=== PATIENT | male | born 1960 | race Hispanic/Latino ===

== ENCOUNTER 2018-04-26 14:28 | Inpatient (IN) | payer MEDICARE ==
[2018-04-26 15:14] LABS: #Eosinphils 0.2 thou/uL (0.0-0.7); #Lymphocytes 2.8 thou/uL (1.20-3.40); #Monocytes 0.7 thou/uL (0.11-0.59); #Neutrophils 2.9 thou/uL (1.40-6.50); %Basophils 0.1 % (0.0-1.0); %Eosinophils 3.6 % (0.0-10.0); %Lymphocytes 42.7 % (21.0-51.0); %Monocytes 10.3 % (0.0-10.0); %Neutrophils 43.3 % (42.0-75.0); Hemoglobin 14.5 g/dL (14.0-18.0); Mean Corpuscular HGB CONC 34.8 g/dL (32.0-36.0); Mean Corpuscular Hemoglobin 32.8 pg (27.0-31.0); Mean Corpuscular Volume 94.4 fl (80.0-94.0); Platelet Count 216 thou/uL (130-400); RBC Distribution Width 11.7 % (11.5-14.5); Red Blood Cell (RBC) Count 4.42 mill/uL (4.70-6.10); White Blood Cell (WBC) Count 6.7 thou/uL (4.8-10.8)
[2018-04-26 15:35] LABS: ALT (SGPT) 25 U/L (8-55); AST (SGOT) 47 U/L (5-34); Albumin 3.8 g/dL (3.5-5.0); Alkaline Phosphatase 74 U/L (40-150); Anion Gap 13 mmol/L (10-20); BUN (Urea Nitrogen) 19 mg/dL (8.4-25.7); Bilirubin, Total 0.5 mg/dL (0.2-1.2); Calc. Creatinine Clearance 0 mL/min (70-130); Calcium 9.4 mg/dL (7.8-10.44); Carbon Dioxide 24 mmol/L (22-29); Chloride 104 mmol/L (98-107); Estimated GFR-MDRD 72; Globulin 4.5 g/dL (2.4-3.5); Glucose 127 mg/dL (70-105); Potassium 4.2 mmol/L (3.5-5.1); Protein, Total 8.3 g/dL (6.0-8.3); Sodium 137 mmol/L (136-145)
[2018-04-26] MEDS ORDERED: Ketorolac Tromethamine 30 MG/ML VIAL ONE (17:10)
[2018-04-26] MEDS ORDERED: Metoclopramide HCl 10 MG/2 ML VIAL ONE (17:10)
[2018-04-26] MEDS ORDERED: Dexamethasone 10 MG/ML VIAL ONE (17:13)
[2018-04-26] MEDS ORDERED: hydrALAZINE 20 MG/ML VIAL ONE (18:31)
--- NOTE | 2018-04-26 18:50 | CT ---
NONCONTRAST HEAD CT 04/26/18 HISTORY: Headache. Occipital head x2 weeks. COMPARISON: 11/30/16. FINDINGS: No parenchymal hemorrhage. No extra-axial hematoma. No midline shift. Basilar cisterns are patent. Ag e appropriate brain volume. Cortical hair-white matter differentiation is preserved. Ventricles and s ulci are patent and symmetric. Calvarium is intact. Adequate aeration of the sinuses and mastoid air cells. The left and right cerebellar tonsils are noted at level of the foramen magnum. IMPRESSION: 1. No acute intracranial process. 2. The left and right cerebellar tonsils are noted at the level of the foramen magnum. Correlati on made with a cervical spine MRI from May 01, 2015 suggest that at least the possibility of cerebel lar tonsillar ectopia. Nonemergency neurosurgical consultation is recommended. POS: [facility]
[2018-04-26] MEDS ORDERED: cloNIDine 0.1 MG TAB ONE (18:57)
--- NOTE | 2018-04-26 20:10 | RAD ---
ONE VIEW CHEST: 04/26/18 COMPARISON: 11/30/16. HISTORY: Migraine headache. COMPARISON: None. FINDINGS: Slight elongation of the aorta. Normal cardiac silhouette. Persistent elevation of the right hemidiap hragm. No consolidation of mass. No pneumothorax or osseous abnormalities. IMPRESSION: No acute cardiopulmonary process. POS: [facility]
[2018-04-26 20:12] LABS: Troponin I Less than 0.010 ng/mL (< 0.028)
[2018-04-26] MEDS ORDERED: niCARdipine 20MG In NaCl 20 MG/200 ML BAG ONE ×2 (20:22→23:14)
[2018-04-26 21:18] LABS: Bilirubin Negative (Negative); Blood, Urine Negative (Negative); Clarity CLEAR (Clear); Glucose, Urine (Dipstick) Negative (Negative); Leukocyte Negative (Negative); Nitrite Negative (Negative); Protein, Urine (Dipstick) Negative (Neg-Trace); Specific Gravity, Urine 1.015 (1.002-1.036); pH, Urine 5.5 (5.0-9.0)
[2018-04-26] MEDS ORDERED: Milk Of Magnesia 30 ML UDCUP PO PRN (22:04)
[2018-04-26] MEDS ORDERED: Nitroglycerin 0.4 MG TAB (25 Tab Bottle) PO PRN (22:04)
[2018-04-26] MEDS ORDERED: Acetaminophen 325 MG TAB PO PRN (22:04)
[2018-04-26] MEDS ORDERED: Ondansetron HCl/PF 4 MG/2 ML Vial IVP PRN (22:04)
[2018-04-26] MEDS ORDERED: hydrALAZINE 20 MG/ML VIAL SLOW IVP PRN ×2 (22:04→22:09)
[2018-04-26] MEDS ORDERED: Ondansetron ODT 4 MG TAB PO PRN (22:04)
[2018-04-26] MEDS ORDERED: Nitroglycerin 2% Ointment 1 INCH/1 GM Packet TOP PRN (22:09)
[2018-04-26] MEDS ORDERED: Labetalol HCl 100 MG/20 ML VIAL SLOW IVP PRN (22:09)
[2018-04-26] MEDS ORDERED: Carvedilol 6.25 MG TAB PO SCH (22:15)
[2018-04-26] MEDS ORDERED: tiZANidine HCl 4 MG TAB PO SCH (22:15)
[2018-04-26] MEDS ORDERED: Gabapentin 300 MG CAP PO SCH (22:15)
[2018-04-26] MEDS ORDERED: Aspirin 325 MG TAB PO SCH (22:30)
[2018-04-26] MEDS ORDERED: NIFEdipine XL 30 MG TAB PO SCH (22:30)
--- NOTE | 2018-04-26 22:36 | HP ---
DATE OF ADMISSION: 04/26/2018 PRIMARY CARE PHYSICIAN: Alfredo Chen M.D. CHIEF COMPLAINT: Nausea with headache of 2 weeks' duration. HISTORY OF PRESENT ILLNESS: The patient is a 57-year-old male with morbid obesity and hypertension w ho presented to the emergency room with above complaints. Over the last two weeks, patient has persistent nausea along with headache. The nausea is more or le ss constant without any vomiting, abdominal pain, diarrhea, or constipation. He denies any heartburn or dyspepsia. The headache is more or less in the occipital region without any photophobia, phonophobia, weakness, numbness of any of his extremities. It is more or less constant, moderate in intensity. He denies a ny chest pain, palpitations, syncope, diaphoresis. He is compliant with all of his medications inclu ding aspirin. In the emergency room, his workup was consistent with hypertensive crisis requiring Cardene drip. Hi s blood pressure did not improve despite giving him hydralazine, clonidine. His headache somewhat im proved after Toradol, Decadron, and Reglan. PAST MEDICAL HISTORY: 1. Hypertension. 2. Morbid obesity. 3. Chronic diastolic heart failure. 4. History of TIA in 11/2016. He was started on Plavix at that time. He is unclear who discontinue d Plavix. He does not take Plavix anymore. 5. Chronic pain syndrome. 6. Suspected obstructive sleep apnea. He is not on CPAP. 7. Negative Cardiolite stress test in 11/2016. PAST SURGICAL HISTORY: 1. Cholecystectomy. 2. Incision and drainage of abdominal abscess. ALLERGIES: No known drug allergies. CURRENT HOME MEDICATIONS: Per patient report, carvedilol 6.25 b.i.d., lisinopril/hydrochlorothiazide 20/25 two tablets daily, [place] 10/325 two tablets 3 times daily as needed, Zanaflex 8 mg at bedtime, gabapentin 600 mg t.i.d., aspirin daily. Please note that patient does not take Plavix which was st arted last year. He does not remember when it was discontinued. SOCIAL HISTORY: The patient currently lives at home with his family. He denies any alcohol, tobacco or drug use. He does not have a blood pressure monitor. FAMILY HISTORY: Multiple family members with hypertension, diabetes, and heart problems. REVIEW OF SYSTEMS: The following complete review of systems was negative, unless otherwise mentioned in the HPI or below: Constitutional: Weight loss or gain, ability to conduct usual activities. Sk in: Rash, itching. Eyes: Double vision, pain. ENT/Mouth: Nose bleeding, neck stiffness, pain, ten derness. Cardiovascular: Palpitations, dyspnea on exertion, orthopnea. Respiratory: Shortness of breath, wheezing, cough, hemoptysis, fever or night sweats. Gastrointestinal: Poor appetite, abdomi nal pain, heartburn, nausea, vomiting, constipation, or diarrhea. Genitourinary: Urgency, frequency , dysuria, nocturia. Musculoskeletal: Pain, swelling. Neurologic/Psychiatric: Anxiety, depression . Allergy/Immunologic: Skin rash, bleeding tendency. PHYSICAL EXAMINATION: VITAL SIGNS: Showed blood pressure of 215/96 on Cardene drip at 5, which has been increased to 7.5, pulse rate of 69, respirations 16, O2 saturation 96% on room air. GENERAL: A 57-year-old male with headache and nausea. His headache is somewhat better after above m easures. HEENT: Head: Atraumatic, normocephalic. Sclerae are anicteric. Moist mucous membrane, no oral les ion. NECK: Supple, no JVD, no carotid bruit. LUNGS: Clear to auscultation bilaterally, no wheezing, rales or rhonchi. HEART: S1, S2 present. Regular rate and rhythm, no significant rubs or gallops appreciated. ABDOMEN: Soft, nontender, bowel sounds present. EXTREMITIES: No edema or calf tenderness. NEUROLOGIC: Grossly nonfocal, moves all four extremities. Cranial nerves II-XII were normal on exam ination. Power was 5/5 in all extremities. PSYCHIATRY: Alert, awake, oriented x3. SKIN: Warm and dry. LYMPH NODES: No palpable lymph nodes in the neck. PERIPHERAL VASCULAR: Radial pulses palpable bilaterally. MUSCULOSKELETAL: No joint swelling or tenderness. LABORATORY AND X-RAY FINDINGS: CBC showed WBC 6.7 with hemoglobin 14.5, hematocrit 41.7, platelet co unt 216. Chemistries showed sodium 137, potassium 4.2, chloride 104, bicarbonate 24, BUN 19, creatin ine 1.07. Troponins were negative. Prolactin was negative. Urinalysis was negative. Chest x-ray b y my review was negative for infiltrate or edema. CT scan of the brain by my review was negative for acute findings. It showed left and the right cerebellar tonsils were noted at the level of the fora men magnum. Nonemergent neurosurgical consultation is recommended for possible cerebellar tonsillar ectopia. EKG by my review showed sinus rhythm with right bundle branch block and left ventricular hy pertrophy. IMPRESSION: 1. Persistent nausea with occipital headache probably secondary to hypertensive crisis. 2. 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 A nonemergent neurosurgical consultation is recommended. 3. Morbid obesity. 4. Chronic diastolic heart failure. 5. History of migraines. 6. Chronic pain syndrome. 7. Suspected obstructive sleep apnea. 8. Chronic kidney disease stage 2. 9. History of transient ischemic attack, currently on aspirin. 10. Negative Cardiolite stress test in 11/2016. PLAN: The patient will be monitored in the Intensive Care Unit setting due to Cardene drip. We will continue Cardene drip. We will resume his home medications including carvedilol, lisinopril, and hy drochlorothiazide. We will also add Procardia-XL. Frequent neuro checks will be done. We will cons ider Neurosurgical or Neurology consultation if his headache does not improve with blood pressure con trol. Plan of care was discussed with the patient in detail, he stated understanding.
[2018-04-26] MEDS ORDERED: Fentanyl 100 MCG/2 ML VIAL ONE (23:14)
[2018-04-26 23:24] LABS: Troponin I Less than 0.010 ng/mL (< 0.028)
[2018-04-26 23:54] VITALS: BMI 55.3
[2018-04-27] MEDS ORDERED: niCARdipine HCl 25 MG in Sodium Chloride 0.9% 250 ML 240 ML IVPB SCH (01:00)
[2018-04-27 06:04] LABS: Anion Gap 13 mmol/L (10-20); BUN (Urea Nitrogen) 24 mg/dL (8.4-25.7); Calc. Creatinine Clearance 170 mL/min (70-130); Calcium 9.7 mg/dL (7.8-10.44); Carbon Dioxide 20 mmol/L (22-29); Chloride 104 mmol/L (98-107); Estimated GFR-MDRD 64; Glucose 281 mg/dL (70-105); Potassium 4.3 mmol/L (3.5-5.1); Sodium 133 mmol/L (136-145)
[2018-04-27 06:08] LABS: Troponin I 0.025 ng/mL (< 0.028)
[2018-04-27] MEDS: Gabapentin 300 MG CAP PO SCH ×3 (08:31→20:32)
[2018-04-27] MEDS: Carvedilol 6.25 MG TAB PO SCH ×2 (08:31→17:19)
[2018-04-27] MEDS: Lisinopril/Hydrochlorothiazide 20/25 mg Tablet PO SCH (08:32)
[2018-04-27] MEDS: Aspirin 325 MG TAB PO SCH (08:32)
[2018-04-27] MEDS: Docusate 100 MG CAP PO SCH ×2 (08:33→20:32)
[2018-04-27] MEDS: HYDROcodone/Acetaminophen 10/325 mg Tablet PO PRN ×3 (08:35→20:34)
[2018-04-27 09:17] LABS: Amphetamine Not Detected (NotDetected); Barbiturates Screen Not Detected (NotDetected); Benzodiazepine Screen Not Detected (NotDetected); Cocaine Metabolite Screen Not Detected (NotDetected); Medtox Control Line Valid? VALID (VALID); Medtox Reader # READER 1; Methadone Not Detected (NotDetected); Methamphetamine Not Detected (NotDetected); Opiate Screen Detected (NotDetected); Oxycodone Screen Not Detected (NotDetected); Phencyclidine (PCP) Not Detected (NotDetected); THC/Cannabinoid Screen Not Detected (NotDetected); Tricyclic Screen Not Detected (NotDetected)
--- NOTE | 2018-04-27 11:08 | PDOC.PN ---
- Subjective Encounter Start Date: 04/27/18 Encounter Start Time: 10:15 Subjective: no chest pain or sob or headache -: is comfortable -: off cardene drip - Objective Resuscitation Status: Resuscitation Status FULL:Full Resuscitation MAR Reviewed: Yes Vital Signs & Weight: Vital Signs (12 hours) Temp Pulse Resp BP BP Pulse Ox 04/27/18 10:05 97.6 F 70 20 161/84 H 94 L 04/27/18 08:32 125 H 186/104 H 04/27/18 08:31 201/90 H 04/27/18 08:00 98.8 F 125 H 16 98 04/27/18 06:57 96 04/27/18 04:00 98.6 F 04/27/18 00:31 125 H 186/104 H 04/27/18 00:23 98.3 F 113 H 30 H 95 04/27/18 00:11 113 H 172/85 H 04/27/18 00:00 98.6 F Weight Weight 374 lb 5.518 oz Most Recent Monitor Data Heart Rate from ECG 73 NIBP 166/83 NIBP BP-Mean 112 Respiration from ECG 27 SpO2 95 I&O: 04/26/18 04/27/18 04/28/18 06:59 06:59 06:59 Intake Total 662 360 Output Total 400 150 Balance 262 210 Result Diagrams: 04/26/18 15:03 04/27/18 04:19 Phys Exam - Physical Examination HEENT: PERRLA, moist MMs Neck: no JVD, supple Respiratory: no wheezing, no rales Cardiovascular: RRR, no significant murmur Gastrointestinal: soft, non-tender, positive bowel sounds Musculoskeletal: no edema, pulses present Neurological: non-focal, moves all 4 limbs Psychiatric: normal affect, A&O x 3 Dx/Plan (1) HTN (hypertension) Code(s): I10 - ESSENTIAL (PRIMARY) HYPERTENSION Status: Chronic Qualifiers: Hypertension type: essential hypertension Qualified Code(s): I10 - Essential (primary) hypertension (2) CHF (NYHA class II, ACC/AHA stage C) Code(s): I50.9 - HEART FAILURE, UNSPECIFIED Status: Chronic Comment: diastolic dysfunction (3) Morbid obesity with BMI of 50.0-59.9, adult Code(s): E66.01 - MORBID (SEVERE) OBESITY DUE TO EXCESS CALORIES; Z68.43 - BODY MASS INDEX (BMI) 50-59.9 , ADULT Status: Chronic - Plan htn is controlled now -: home meds plus procardia started -: to amb as tolerated -: dc plan in am -: trop x3 -ve, will likely neep outpt sleep study/cpap * . Review of Systems - Medications/Allergies Allergies/Adverse Reactions: Allergies Allergy/AdvReac Type Severity Reaction Status Date / Time No Known Drug Allergies Allergy Verified 04/26/18 23:57 Medications: Current Medications Acetaminophen (Tylenol) 650 mg PO Q4H PRN PRN Reason: Headache/Fever or Pain Hydrocodone Bitart/Acetaminophen ([place] 10/325) 2 tab PO Q6H PRN PRN Reason: Severe Pain (7-10) Last Admin: 04/27/18 08:35 Dose: 2 tab Aspirin (Aspirin) 325 mg PO QAM-[facility] Last Admin: 04/27/18 08:32 Dose: 325 mg Carvedilol (Coreg) 6.25 mg PO BID-[facility] Last Admin: 04/27/18 08:31 Dose: 6.25 mg Docusate Sodium (Colace) 100 mg PO BID [facility] Last Admin: 04/27/18 08:33 Dose: 100 mg Enoxaparin Sodium (Lovenox) 40 mg SC 2100 [facility] Gabapentin (Neurontin) 600 mg PO TID [facility] Last Admin: 04/27/18 08:31 Dose: 600 mg Lisinopril/HCTZ (Prinizide 20-25) 2 tab PO DAILY [facility] Last Admin: 04/27/18 08:32 Dose: 2 tab Hydralazine HCl (Apresoline) 10 mg SLOW IVP Q4H PRN PRN Reason: SBP Greater Than 180 Nicardipine HCl 25 mg/ Sodium (Chloride) 250 mls @ 0 mls/hr IVPB INF SYDNEE; Titrate PRN Reason: Protocol Last Admin: 04/27/18 01:01 Dose: 250 mls Labetalol HCl (Normodyne) 10 mg SLOW IVP Q4H PRN PRN Reason: Systolic BP > 180 Last Admin: 04/27/18 00:31 Dose: 10 mg Magnesium Hydroxide (Milk Of Magnesium) 30 ml PO DAILYPRN PRN PRN Reason: Constipation Nifedipine (Procardia Xl) 60 mg PO DAILY [facility] Nitroglycerin (Nitrostat) 0.4 mg PO Q5MIN PRN PRN Reason: Chest Pain Ondansetron HCl (Zofran Odt) 4 mg PO Q6H PRN PRN Reason: Nausea/Vomiting Ondansetron HCl (Zofran) 4 mg IVP Q6H PRN PRN Reason: Nausea/Vomiting Tizanidine HCl (Zanaflex) 8 mg PO HS SYDNEE
[2018-04-27] MEDS ORDERED: tiZANidine HCl 4 MG TAB PO SCH (21:00)
[2018-04-27] MEDS ORDERED: Enoxaparin Sodium 40 MG/0.4 ML SYRINGE SC SCH (21:00)
[2018-04-28 07:52] VITALS: BP 149/74; TEMP 97.6
[2018-04-28] MEDS: Aspirin 325 MG TAB PO SCH (08:59)
[2018-04-28] MEDS: Gabapentin 300 MG CAP PO SCH (08:59)
[2018-04-28] MEDS: Carvedilol 6.25 MG TAB PO SCH (08:59)
[2018-04-28] MEDS: Docusate 100 MG CAP PO SCH (09:00)
[2018-04-28] MEDS ORDERED: NIFEdipine XL 60 MG TAB PO SCH (09:00)
[2018-04-28] MEDS: Lisinopril/Hydrochlorothiazide 20/25 mg Tablet PO SCH (09:00)
[2018-04-28] MEDS: HYDROcodone/Acetaminophen 10/325 mg Tablet PO PRN (09:02)
--- NOTE | 2018-04-28 11:03 | PDOC.PN ---
- Subjective Encounter Start Date: 04/28/18 Encounter Start Time: 07:00 Subjective: no chestpain, headache or sob -: feels better -: is watching a show on his phone - Objective Resuscitation Status: Resuscitation Status FULL:Full Resuscitation MAR Reviewed: Yes Vital Signs & Weight: Vital Signs (12 hours) Temp Pulse Resp BP BP Pulse Ox 04/28/18 09:08 62 04/28/18 09:00 62 04/28/18 08:00 97.6 F 62 16 95 04/28/18 07:51 97.6 F 54 L 16 149/74 H 95 04/28/18 04:00 97.7 F 54 L 20 104/56 L 92 L 04/28/18 00:00 97.9 F 57 L 22 H 108/68 95 Weight Weight 374 lb 5.518 oz Most Recent Monitor Data Heart Rate from ECG 73 NIBP 166/83 NIBP BP-Mean 112 Respiration from ECG 27 SpO2 95 I&O: 04/27/18 04/28/18 04/29/18 06:59 06:59 06:59 Intake Total 662 840 Output Total 400 150 Balance 262 690 Result Diagrams: 04/26/18 15:03 04/27/18 04:19 Phys Exam - Physical Examination HEENT: PERRLA, moist MMs Neck: no JVD, supple Respiratory: no wheezing, no rales Cardiovascular: RRR, no significant murmur Gastrointestinal: soft, non-tender, positive bowel sounds Musculoskeletal: no edema, pulses present Neurological: non-focal, moves all 4 limbs Psychiatric: normal affect, A&O x 3 Dx/Plan (1) HTN (hypertension) Code(s): I10 - ESSENTIAL (PRIMARY) HYPERTENSION Status: Chronic Qualifiers: Hypertension type: essential hypertension Qualified Code(s): I10 - Essential (primary) hypertension (2) CHF (NYHA class II, ACC/AHA stage C) Code(s): I50.9 - HEART FAILURE, UNSPECIFIED Status: Chronic Comment: diastolic dysfunction (3) Morbid obesity with BMI of 50.0-59.9, adult Code(s): E66.01 - MORBID (SEVERE) OBESITY DUE TO EXCESS CALORIES; Z68.43 - BODY MASS INDEX (BMI) 50-59.9 , ADULT Status: Chronic - Plan hemostable -: dc pt home -: all his antihtn meds faxed to pharmacy * .
--- NOTE | 2018-04-28 17:57 | DIS ---
DATE OF ADMISSION: 04/26/2018 DATE OF DISCHARGE: 04/28/2018 DISCHARGE DISPOSITION: To home. PRIMARY DISCHARGE DIAGNOSIS: Hypertensive emergency, resolved. SECONDARY DISCHARGE DIAGNOSES: History of congestive heart failure with diastolic dysfunction, ACC stage C; morbid obesity with BMI of 55. PROCEDURES DONE DURING HOSPITALIZATION: CT brain done showed no acute intracranial process. There are old findings of both cerebellar tonsils at the level of foramen magnum suggestive of possible tonsillar ectopia. He will probably need neurosurgical consultation in the outpatient setting for the same. Chest x-ray done showed no acute cardiopulmonary abnormalities. H&H 14 and 41, platelet count 216. Troponin x3 is negative. CK-MB 4.0, prolactin 9.6 , BUN 24, creatinine 1.1. Urine tox screen was positive for opiates, likely iatrogenic. DISCHARGE MEDICATIONS: Aspirin 325 mg p.o. daily, Coreg 6.25 mg twice daily, gabapentin 600 mg 3 times daily, [place] p.r.n. for pain, lisinopril with hydrochlorothiazide 20/25 mg p.o. daily, Procardia-XL 60 mg daily, Ultram p.r.n. for pain. ALLERGIES: No known drug allergies. DISCHARGE PLAN: The patient to record blood pressure and pulse twice daily for a period of 10 days to follow up with primary care physician. BRIEF COURSE DURING HOSPITALIZATION: The patient initially was brought to emergency room on 04/26/2018 with complaints of nausea and headache for nearly two weeks. On arrival, his blood pressure was 215/96 and was placed on Cardene drip. He was initially admitted to ICU for Cardene drip and was later downgraded to medical floor. He has remained hemodynamically stable with no neurological decompensation. His headache, nausea, vomiting has completely resolved. The patient is ambulating well and eating well prior to discharge. His CT brain revealed possible cerebellar tonsillar ectopia and needs outpatient neurosurgical consultation for the same via PCP. He has been advised to check blood pressure and pulse twice daily for a period of 10 days and record to follow up with primary care physician to make any changes to his current medications. He is hemodynamically stable and will be shortly discharged home. Please see [id number]. [facility] HOSPITALPhilipp
== END 2018-04-28 10:25 | disposition home or self-care (01) | DRG 305 ==
LOC: ERS 14:28 → CCU 19:46 → T4-A 04-27 10:17
PROVIDERS: ADMIT Internal Medicine; ATTEND Internal Medicine
DX: I16.9 Hypertensive crisis, unspecified (principal); I50.32 Chronic diastolic (congestive) heart failure; E66.01 Morbid (severe) obesity due to excess calories; I11.0 Hypertensive heart disease with heart failure; G89.4 Chronic pain syndrome; G47.33 Obstructive sleep apnea (adult) (pediatric); G44.89 Other headache syndrome; Z86.73 Personal history of transient ischemic attack (TIA), and cerebral infarction without residual deficits; Z90.49 Acquired absence of other specified parts of digestive tract; Z79.82 Long term (current) use of aspirin; Z79.899 Other long term (current) drug therapy
CPT/HCPCS: 36415; 70450; 71045; 80048; 80053; 80306; 81003; 82553; 84146; 84484; 85025; 90471; 90732; 93005; 96365; 96366; 96367; 96375; 96376; G0009; J0360; J1100; J1650; J1885; J2765; J3010; J7050

== ENCOUNTER 2018-06-16 18:21 | Emergency (ER) | payer MEDICARE ==
--- NOTE | 2018-06-16 19:20 | RAD ---
PORTABLE CHEST: 06/16/18 HISTORY: Shortness of breath. COMPARISON: 04/26/18 study. Heart size is within normal limits. Mediastinal structures appear unremarkable. The lungs are clear o f infiltrates. There is elevation of the right hemidiaphragm. IMPRESSION: No active intrathoracic disease. POS: [facility]
[2018-06-16 19:57] LABS: #Basophils 0.1 thou/uL (0.0-0.2); #Eosinphils 0.2 thou/uL (0.0-0.7); #Lymphocytes 2.9 thou/uL (1.20-3.40); #Monocytes 0.7 thou/uL (0.11-0.59); #Neutrophils 4.2 thou/uL (1.40-6.50); %Basophils 1.5 % (0.0-1.0); %Eosinophils 2.6 % (0.0-10.0); %Lymphocytes 36.1 % (21.0-51.0); %Monocytes 8.7 % (0.0-10.0); %Neutrophils 51.1 % (42.0-75.0); Hemoglobin 13.5 g/dL (14.0-18.0); Mean Corpuscular HGB CONC 35.2 g/dL (32.0-36.0); Mean Corpuscular Hemoglobin 33.3 pg (27.0-31.0); Mean Corpuscular Volume 94.7 fL (78.0-98.0); Mean Platelet Volume 6.9 fL (7.4-10.4); Platelet Count 198 thou/uL (130-400); RBC Distribution Width 12.1 % (11.5-14.5); Red Blood Cell (RBC) Count 4.03 mill/uL (4.70-6.10); White Blood Cell (WBC) Count 8.1 thou/uL (4.8-10.8)
[2018-06-16 20:17] LABS: ALT (SGPT) 24 U/L (8-55); AST (SGOT) 43 U/L (5-34); Albumin 3.9 g/dL (3.5-5.0); Alkaline Phosphatase 74 U/L (40-150); Anion Gap 13 mmol/L (10-20); BUN (Urea Nitrogen) 22 mg/dL (8.4-25.7); Bilirubin, Total 0.5 mg/dL (0.2-1.2); CK (CPK) 196 U/L (30-200); Calc. Creatinine Clearance 0 mL/min (70-130); Calcium 9.2 mg/dL (7.8-10.44); Carbon Dioxide 22 mmol/L (22-29); Chloride 106 mmol/L (98-107); Estimated GFR-MDRD 79; Globulin 4.1 g/dL (2.4-3.5); Glucose 108 mg/dL (70-105); Potassium 4.2 mmol/L (3.5-5.1); Sodium 137 mmol/L (136-145)
[2018-06-16 20:23] LABS: CKMB 3.9 ng/mL (0-6.6); Troponin I Less than 0.010 ng/mL (< 0.028)
[2018-06-16] MEDS ORDERED: Acetaminophen 500 MG TAB ONE (21:23)
== END 2018-06-16 21:56 | disposition home or self-care (01) ==
LOC: ERS 18:21
DX: R06.02 Shortness of breath (principal); I11.0 Hypertensive heart disease with heart failure; I50.9 Heart failure, unspecified; I10 Essential (primary) hypertension; E66.9 Obesity, unspecified; Z79.82 Long term (current) use of aspirin; Z79.899 Other long term (current) drug therapy; Z87.891 Personal history of nicotine dependence
CPT/HCPCS: 71045; 80053; 82550; 82553; 83880; 84484; 85025; 93005

== ENCOUNTER 2020-06-19 17:54 | Emergency (ER) | payer MEDICARE ==
--- NOTE | 2020-06-19 18:33 | RAD ---
EXAM: 4 views of the right knee HISTORY: Knee pain after injury COMPARISON: None FINDINGS: No knee effusion is seen. There is no evidence of acute fracture or dislocation. Mild trico mpartmental osteophytes are seen consistent with osteoarthritis. No soft tissue swelling is present. IMPRESSION: No evidence of acute osseous abnormality.
== END 2020-06-19 18:52 | disposition home or self-care (01) ==
LOC: ERS 17:54
DX: M25.561 Pain in right knee (principal); I11.0 Hypertensive heart disease with heart failure; I50.9 Heart failure, unspecified; E66.9 Obesity, unspecified; Z79.899 Other long term (current) drug therapy; Z79.82 Long term (current) use of aspirin